=== PATIENT | female | born 1970 | race Caucasian/White ===

== ENCOUNTER 2016-10-30 14:40 | Emergency (ER) | payer SELFPAY ==
[~2016-10-30] VITALS: Ht 165.1 cm; Wt 68.0 kg
--- NOTE | 2016-10-30 14:51 | PD ---
Physical Exam Date Seen by Provider: October 30, 2016 Time Seen by Provider: 14:45 Narrative Pt presents to the ED with c/o SOB, no energy, and fatigue for the last 3 weeks. Pt started HRT 3 days ago and today feels as if she is going to pass out and has tightness in her throat. Symptoms overall have worsened today. Hx of thyroid disorder in the past, she is not on any current medications for this but does take OTC thyroid supplementation. No current PCP. No recent evaluation of thyroid function. No chest pain. Awaiting bed assignment. MDM Supervised Visit with SHANTEL: Joyce Rodriguez October 30, 2016 14:51
--- NOTE | 2016-10-30 15:21 | RADRPT ---
EXAM DATE/TIME: 10/30/2016 15:16 [facility] COMPARISON: No previous studies available for comparison. INDICATIONS : Palpitations, dyspnea. MEDICAL HISTORY : Hyperthyroidism. SURGICAL HISTORY : None. ENCOUNTER: Initial ACUITY: 2 weeks PAIN SCORE: 0/10 LOCATION: Bilateral chest FINDINGS: PA and lateral views of the chest demonstrate the lungs to be symmetrically aerated without evidence of mass, infiltrate or effusion. The cardiomediastinal contours are unremarkable. Osseous structure s are intact. CONCLUSION: Normal. Felton Tabares MD on October 30, 2016 at 15:19 Board Certified Radiologist. This report was verified electronically.
[2016-10-30 15:33] VITALS: BP 128/73; PULSE 78; PULSE 82; RESP 16; RESP 18; O2SAT 100
[2016-10-30 16:02] LABS: BASOPHIL # 0.1 TH/MM3 (0-0.2); BASOPHIL % 1.3 % (0.0-2.0); EOSINOPHIL # 0.1 TH/MM3 (0-0.4); EOSINOPHIL % 1.1 % (0.0-4.0); HEMATOCRIT 29.4 % (35.0-46.0); LYMPH % 27.3 % (9.0-44.0); LYMPHOCYTE # 1.7 TH/MM3 (1.0-4.8); MEAN CELL VOLUME 69.7 FL (80.0-100.0); MEAN CORPUSCULAR HEMOGLOBIN 22.1 PG (27.0-34.0); MEAN CORPUSCULAR HGB CONC 31.7 % (32.0-36.0); NEUT % 63.3 % (16.0-70.0); PLATELET COUNT 275 TH/MM3 (150-450); RED BLOOD COUNT 4.22 MIL/MM3 (4.00-5.30); RED CELL DISTRIBUTION WIDTH 18.8 % (11.6-17.2); WHITE BLOOD COUNT 6.3 TH/MM3 (4.0-11.0)
[2016-10-30 16:05] LABS: BLOOD, URINE NEG (NEG); GLUCOSE,URINE NEG (NEG); KETONE, URINE NEG (NEG); NITRITE,URINE NEG (NEG); SQUAMOUS EPITHELIAL CELL URINE <1 /hpf (0-5); URINE COLOR LIGHT-YELLOW (YELLW/STRAW)
--- NOTE | 2016-10-30 16:07 | PD ---
HPI Chief Complaint: Syncope/Near-Syncope Time Seen by Provider: 14:56 Travel History International Travel<30 days: No Contact w/Intl Traveler<30days: No Traveled to known affect area: No History of Present Illness HPI Patient is a 46 year old female who comes in complaining of SOB. She says this has been going on for the past 3 weeks. She says it has been getting worse and today she felt like she was going to pass out. She reports taking a "thyroid vitamin" which she recently doubled up on because she thought her thyroid was causing her problems, though she has not been diagnosed with thyroid issues in since moving to the [place]. She says she also recently started control pills due to irregular uterine bleeding. She denies any chest pain. She does not currently have any vaginal bleeding. [facility] Past Medical History Anemia: Yes Heart Rhythm Problems: No Cardiovascular Problems: No Chest Pain: No Myocardial Infarction: No ?: Not Past Surgical History Surgical History: No Previous Surgery Social History Tobacco Use: No Review of Systems Except as stated in HPI: all other systems reviewed are Neg General / Constitutional: No: Fever, Chills Eyes: No: Blurred Vision HENT: Positive: Lightheadedness, No: Headaches Cardiovascular: No: Chest Pain or Discomfort Respiratory: Positive: Shortness of Breath Gastrointestinal: No: Nausea, Vomiting Genitourinary: No: Dysuria Musculoskeletal: No: Edema, Pain Skin: No Rash, No Change in Pigmentation Physical Exam Narrative GENERAL: Awake and alert, in no acute distress SKIN: Focused skin assessment warm/dry. HEAD: Atraumatic. Normocephalic. EYES: Pupils equal and round. No scleral icterus. EOMI ENT: Mucous membranes pink and moist. NECK: Trachea midline. No JVD. CARDIOVASCULAR: Regular rate and rhythm. No murmur appreciated. RESPIRATORY: No accessory muscle use. Clear to auscultation. Breath sounds equal bilaterally. GASTROINTESTINAL: Abdomen soft, non-tender, nondistended. MUSCULOSKELETAL: No obvious deformities. No clubbing. No cyanosis. No edema. No calf tenderness. NEUROLOGICAL: Awake and alert. No obvious cranial nerve deficits. Motor grossly within normal limits. Normal speech. PSYCHIATRIC: Appropriate mood and affect; insight and judgment normal. Data Data Last Documented VS Vital Signs Date Time Temp Pulse Resp B/P Pulse Ox O2 Delivery O2 Flow Rate FiO2 10/30/16 18:46 78 16 132/78 100 Room Air Orders Electrocardiogram (10/30/16 15:05) Ed Urine Pregnancytest Poc (10/30/16 15:05) Complete Blood Count With Diff (10/30/16 15:05) Comprehensive Metabolic Panel (10/30/16 15:05) Troponin I (10/30/16 15:05) Act Partial Throm Time (Ptt) (10/30/16 15:05) Prothrombin Time / Inr (Pt) (10/30/16 15:05) Urinalysis - C+S If Indicated (10/30/16 15:05) Ua Includes Microscopic (10/30/16 15:05) Chest, Pa & Lat (10/30/16 15:05) Ecg Monitoring (10/30/16 15:05) Iv Access Insert/Monitor (10/30/16 15:05) Oximetry (10/30/16 15:05) Thyroid Stimulating Hormone (10/30/16 15:05) Free T3 (10/30/16 15:05) Thyroxine (T4) (10/30/16 15:05) Ct Pulmonary Angiogram (10/30/16 15:05) Iohexol 350 Inj (Omnipaque 350 Inj) (10/30/16 17:23) Labs Laboratory Tests Test 10/30/16 10/30/16 15:25 15:30 Urine Color LIGHT-YELLOW Urine Turbidity CLEAR Urine pH 8.0 Urine Specific [place] 1.006 Urine Protein NEG mg/dL Urine Glucose (UA) NEG mg/dL Urine Ketones NEG mg/dL Urine Occult Blood NEG Urine Nitrite NEG Urine Bilirubin NEG Urine Urobilinogen LESS THAN 2.0 MG/DL Urine Leukocyte Esterase NEG Urine Squamous Epithelial <1 /hpf Cells Microscopic Urinalysis Comment CULT NOT INDICATED White Blood Count 6.3 TH/MM3 Red Blood Count 4.22 MIL/MM3 Hemoglobin 9.3 GM/DL Hematocrit 29.4 % Mean Corpuscular Volume 69.7 FL Mean Corpuscular Hemoglobin 22.1 PG Mean Corpuscular Hemoglobin 31.7 % Concent Red Cell Distribution Width 18.8 % Platelet Count 275 TH/MM3 Mean Platelet Volume 8.3 FL Neutrophils (%) (Auto) 63.3 % Lymphocytes (%) (Auto) 27.3 % Monocytes (%) (Auto) 7.0 % Eosinophils (%) (Auto) 1.1 % Basophils (%) (Auto) 1.3 % Neutrophils # (Auto) 4.0 TH/MM3 Lymphocytes # (Auto) 1.7 TH/MM3 Monocytes # (Auto) 0.4 TH/MM3 Eosinophils # (Auto) 0.1 TH/MM3 Basophils # (Auto) 0.1 TH/MM3 CBC Comment AUTO DIFF Differential Comment AUTO DIFF CONFIRMED Platelet Estimate NORMAL Platelet Morphology Comment NORMAL Ovalocytes 1+ Prothrombin Time 10.2 SEC Prothromb Time International 0.9 RATIO Ratio Activated Partial 23.5 SEC Thromboplast Time Sodium Level 139 MEQ/L Potassium Level 3.5 MEQ/L Chloride Level 107 MEQ/L Carbon Dioxide Level 23.1 MEQ/L Anion Gap 9 MEQ/L Blood Urea Nitrogen 14 MG/DL Creatinine 0.72 MG/DL Estimat Glomerular Filtration 86 ML/MIN Rate Random Glucose 92 MG/DL Calcium Level 9.3 MG/DL Total Bilirubin 0.3 MG/DL Aspartate Amino Transf 19 U/L (AST/SGOT) Alanine Aminotransferase 21 U/L (ALT/SGPT) Alkaline Phosphatase 44 U/L Troponin I LESS THAN 0.02 NG/ML Total Protein 7.8 GM/DL Albumin 4.1 GM/DL Thyroxine (T4) 7.9 MCG/DL Free Triiodothyronine (T3) 2.28 PG/ML pg/dL Thyroid Stimulating Hormone 2.620 uIU/ML [facility] Gen [facility] Medical Decision Making Medical Screen Exam Complete: Yes Emergency Medical Condition: Yes Medical Record Reviewed: Yes Interpretation(s) ECG shows NSR at 72, no ST elevation or depression Differential Diagnosis Anemia vs electrolyte abnormalities vs pneumonia vs PE Narrative Course Patient is a 46 year old female who comes in complaining of SOB for 3 weeks and feeling like she might pass out. Exam shows no acute abnormalities. IV established, labs sent. Connected to the cardiac cath lab manager. Labs show a Hgb of 9.3. There are no other abnormalities. CTA chest shows no acute abnormalities, no evidence of PE. Patient states she is feeling better. Patient offered admission for observation and further cardiac work-up, declines at this time. Advised to stop her supplements for weightloss and thyroid disease. Advised to take iron and a multivitamin only. Advised to follow up with her doctors. Advised to return to the ED as needed for any worsening symptoms. Diagnosis Primary Impression: SOB (shortness of breath) Additional Impression: Anemia Qualified Code: D50.9 - Iron deficiency anemia, unspecified iron deficiency anemia type Referrals: [facility] call for appointment Patient Instructions: Anemia (ED), Dyspnea (ED), General Instructions Additional Instructions: Stop taking your weightloss and thyroid supplements. You can take a multivitamin with iron. Follow up with a primary care doctor. Return to the ED as needed for any worsening symptoms. Disposition: 01 DISCHARGE HOME Condition: Stable Maday Vincent MD October 30, 2016 16:07
[2016-10-30 16:11] LABS: HEMO FLAGS AUTO DIFF
[2016-10-30 16:12] LABS: COMMENT (UR) CULT NOT INDICATED; CULTURE IF INDICATED CULT NOT INDICATED
[2016-10-30 16:21] LABS: ANION GAP 9 MEQ/L (5-15); AST (GOT) 19 U/L (15-37); BICARBONATE 23.1 MEQ/L (21.0-32.0); BLOOD UREA NITROGEN 14 MG/DL (7-18); CHLORIDE 107 MEQ/L (98-107); GLOMERULAR FILTRATION RATE 86 ML/MIN (>89); POTASSIUM 3.5 MEQ/L (3.5-5.1); SODIUM (NA) 139 MEQ/L (136-145)
[2016-10-30 16:32] LABS: ALKALINE PHOSPHATASE 44 U/L (45-117); ALT (GPT) 21 U/L (10-53); FREE T3 2.28 PG/ML (2.18-3.98); THYROXINE (T4) 7.9 MCG/DL (4.8-13.9); TOTAL BILIRUBIN ADULT 0.3 MG/DL (0.2-1.0)
[2016-10-30 16:37] LABS: APTT (PATIENT) 23.5 SEC (24.3-30.1); INTERNATIONAL NORMALIZED RATIO 0.9 RATIO; PROTHROMBIN TIME - PATIENT 10.2 SEC (9.8-11.6)
[2016-10-30 16:58] VITALS: BP 128/73; PULSE 75; RESP 16; O2SAT 100
[2016-10-30 17:01] LABS: OVALOCYTES 1+ (NORMAL)
[2016-10-30 17:02] LABS: PLATELET ESTIMATE SMEAR NORMAL (NORMAL); PLATELET MORPHOLOGY NORMAL (NORMAL); SCAN/DIFF AUTO DIFF CONFIRMED
[2016-10-30] MEDS ORDERED: IOHEXOL 350 MG/ML 10 ML VIAL (for RAD DIAG) IV ONE (17:23)
--- NOTE | 2016-10-30 17:38 | RADRPT ---
EXAM DATE/TIME: 10/30/2016 17:15 [facility] COMPARISON: CHEST PA & LAT, October 30, 2016, 15:16. INDICATIONS : Shortness of breath for three weeks; evaluate for embolism. IV CONTRAST: 54 cc Omnipaque 350 (iohexol) IV RADIATION DOSE: 7.31 CTDIvol (mGy) MEDICAL HISTORY : None SURGICAL HISTORY : None. ENCOUNTER: Initial ACUITY: 3 weeks PAIN SCALE: 2/10 LOCATION: Bilateral chest TECHNIQUE: Volumetric scanning of the chest was performed using a pulmonary embolism protocol MIP images were re constructed. Using automated exposure control and adjustment of the mA and/or kV according to patien t size, radiation dose was kept as low as reasonably achievable to obtain optimal diagnostic quality images. FINDINGS: PULMONARY ARTERIES: No filling defects are seen in the pulmonary arteries through the segmental level. LUNGS: There is no consolidation or pneumothorax . No concerning pulmonary nodule is visualized. PLEURAE: There is no pleural thickening or pleural effusion. MEDIASTINUM: There is good visualization of the great vessels of the middle mediastinum. No evidence of mediastin al or hilar adenopathy/mass. MUSCULOSKELETAL: Within normal limits for patient age. MISCELLANEOUS: The visualized upper abdominal organs demonstrate no acute abnormality. CONCLUSION: Normal study. No PTE or other abnormality demonstrated. Felton Tabares MD on October 30, 2016 at 17:35 Board Certified Radiologist. This report was verified electronically.
[2016-10-30 18:46] VITALS: BP 132/78; PULSE 78; RESP 16; O2SAT 100
--- NOTE | 2016-10-31 15:38 | EKG ---
Date Performed: 10/30/2016 Time Performed: 17:05:07 PTAGE: 46 years EKG: Sinus rhythm POSSIBLE RIGHT VENTRICULAR CONDUCTION DELAY BORDERLINE ECG NO PREVIOUS TRACING DOCTOR: Jb Crain Interpretating Date/Time 10/31/2016 15:33:43
== END 2016-10-30 18:56 | disposition home or self-care (01) ==
LOC: NEPD 14:40
DX: R06.02 Shortness of breath (principal); D64.9 Anemia, unspecified; R94.31 Abnormal electrocardiogram [ECG] [EKG]; R53.83 Other fatigue
CPT/HCPCS: 71020; 71275; 80053; 81001; 84436; 84443; 84481; 84484; 84703; 85025; 85610; 85730; 93005; 99284; Q9967